=== PATIENT | female | born 1990 | race American Indian/Alaskan Native ===

== ENCOUNTER 2017-08-10 09:01 | Emergency (ER) | payer OTHER ==
[2017-08-10 09:56] VITALS: BP 101/65
[2017-08-10] MEDS ORDERED: MOTRIN PO ONE (11:14)
[2017-08-10] MEDS ORDERED: FLEXERIL PO ONE (11:14)
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
== END 2017-08-10 12:11 | disposition home or self-care (01) ==
LOC: ED 09:01
DX: S39.012A Strain of muscle, fascia and tendon of lower back, initial encounter (principal); V89.2XXA Person injured in unspecified motor-vehicle accident, traffic, initial encounter; Y93.89 Activity, other specified; Y92.89 Other specified places as the place of occurrence of the external cause; Y99.8 Other external cause status
CPT/HCPCS: 99282